=== PATIENT | female | born 1955 | race Caucasian/White ===

== ENCOUNTER 2017-08-04 23:12 | Inpatient (IN) | payer MEDICARE ==
[~2017-08-04 23:12] MED LIST: CELEXA20 MG PO; COREG12.5 MG PO; NS IV; PLAVIX75 MG PO; PRAVASTATIN SOD10 MG PO; SYNTHROID75 MCG PO; ULTRAM50 MG PO; UNASYN IV
[2017-08-05] VITALS (9 sets, daily range): BP systolic 141–182; BP diastolic 58–84; BMI 38.7; BMI 40.0
[2017-08-05] MEDS ORDERED: COREG25 MG PO (03:45)
[2017-08-05] MEDS ORDERED: SYNTHROID50 MCG PO (03:47)
[2017-08-05] MEDS ORDERED: NORVASC10 MG PO (03:48)
[2017-08-05] MEDS ORDERED: CATAPRES0.2 MG PO (03:49)
[2017-08-05] MEDS ORDERED: LEVEMIR100 U/M1 (03:50)
[2017-08-05] MEDS ORDERED: ZESTRIL40 MG PO (03:50)
[2017-08-05] MEDS ORDERED: HUMALOG 30100 UNITS/ SC (03:51)
[2017-08-05] MEDS ORDERED: BAYER CHEWABLE81 MG PO (04:01)
--- NOTE | 2017-08-05 04:27 | NUR ---
PT RECEIVED VIA EMS STRETCHER AWAKE, ALERT, ORIENTED, FAMILY ARRIVED PRIOR TO PTS ARRIVAL. PT IS ABLE TO ANSWER MOST HEALTH QUESTIONS, BUT UNSURE OF SOME MEDICATIONS. PT DENIES ANY NEEDS AT THIS TIME. WILL CONTINUE ADMISSION PROCESSA AND CONTINUE TO MONITOR PT CLOSELY. BED LOW, CALL LIGHT IN REACH, SIDE RAILS X 2, HOB 30 DEGREES.
--- NOTE | 2017-08-05 11:02 | NUR ---
AM ROUNDS - PT IN BED AND APPEARS TO BE SLEEPING AT THIS TIME WITH EQUAL AND NON LABORED BREATHING. PT ON ROOM AIR. IV TO RIGHT [place]. PAGE INTO RENAL FOR ORDERS. BED AT LOWEST POSITION. WILL CONTINUE TO MONITOR
[2017-08-05 13:55] LABS: BASOPHILS 0.6 % (0-2); EOSINOPHILS 3.8 % (0-7); HEMATOCRIT 37.7 % (36.0-48.0); IMMATURE GRANULOCYTES 0.8 % (0-5); LYMPHOCYTES 11.8 % (15-50); MCH 29.1 pg (26.0-34.0); MCHC 31.8 g/dL (31.0-37.0); MCV 91.5 fL (80.0-100.0); MEAN PLATELET VOLUME 9.8 fL (7.4-10.4); MONOCYTES 5.1 % (2-11); NEUTROPHILS 77.9 % (40-80); PLATELET COUNT 305 10x3/uL (130-400); RBC 4.12 10x6/uL (4.00-5.40); RDW 14.9 % (11.5-14.5)
[2017-08-05 14:07] LABS: ALBUMIN 3.2 g/dL (3.4-5.0); ANION GAP 22.4 mmol/L (8-16); BILIRUBIN - TOTAL 0.35 mg/dL (0.2-1.3); CALCIUM 8.5 mg/dL (8.5-10.1); CREATININE - SERUM 5.5 mg/dL (0.6-1.3); PHOSPHOROUS 6.9 mg/dL (2.5-4.9); POTASSIUM - SERUM 4.4 mmol/L (3.5-5.1); PROTEIN - SERUM 7.5 g/dL (6.4-8.2)
--- NOTE | 2017-08-05 15:57 | NUR ---
CONFIRMED DNR WITH PT. PT COULD EXPLAIN WHAT IT MEANT AND VERBALIZED SHE DOESNT WANT ANYTHING DONE AND WANTS TO BE A COMPLETED DNR. ORDER SIGNED AND IN CHART AND ORDER PLACED IN COMPUTER.
--- NOTE | 2017-08-05 16:25 | NUR ---
WALKED INTO PT'S ROOM LATER THIS MORNING AND PT WAS STARING OFF INTO SPACE AND WOULD NOT RESPOND WHEN SPEAKING TO HER. PT WOULD NOT FOLLOW COMMANDS. GORDON HUYNH NOTIFIED
--- NOTE | 2017-08-05 20:00 | NUR ---
RECEIVED PATIENT VIA BED, COMING FROM FLOOR WHERE SHE REPORTED HAVING LOC CHANGE AND HYPERGLYCEMIA. PATIENT IS A&O AT THIS TIME, BLOOD SUGAR CHECKED AND IS 118. NSR ON MONITOR, VSS. WILL CALL DR DECKER TO UPDATE ON PATIENT'S CONDITION.
--- NOTE | 2017-08-05 20:15 | NUR ---
DR DECKER PAGED FOR NEW ORDERS.
--- NOTE | 2017-08-05 20:52 | NUR ---
NEW ORDERS RECEIVED FROM DR DECKER.
[2017-08-06] VITALS (24 sets, daily range): BP systolic 119–181; BP diastolic 57–127
--- NOTE | 2017-08-06 | NUR ---
REASSESSMENT COMPLETE, NO ACUTE CHANGES. BLOOD SUGARS MORE STABLE AT THIS TIME, AND PATIENT IS A&O X4.
--- NOTE | 2017-08-06 02:48 | NUR ---
PATIENT VOIDED 200CC OF URINE, SAMPLE SENT TO LAB.
--- NOTE | 2017-08-06 02:48 | NUR ---
PATIENT INCONTINENT OF URINE ALSO, BED LINENS CHANGED, PATIENT CLEANED UP.
[2017-08-06 03:14] LABS: AMORPHOUS SEDIMENT <1+ /lpf (NONE SEEN); APPEARANCE HAZY (CLEAR); BACTERIA MODERATE /hpf (NONE SEEN); BILIRUBIN NEGATIVE (NEGATIVE); COLOR YELLOW (YELLOW); GLUCOSE 250 mg/dL (NEGATIVE); GRANULAR CAST RARE /lpf (NONE SEEN); HYALINE CAST OCC /lpf (NONE SEEN); KETONE NEGATIVE (NEGATIVE); MUCUS <1+ /lpf (NONE SEEN); NITRITE NEGATIVE (NEGATIVE); PH 6.5 (5.0-6.0); PROTEIN 3+ mg/dL (NEGATIVE); RED CELLS - URINE 0-5 /hpf (0-5); UROBILINOGEN NORMAL (NORMAL); WHITE CELLS - URINE 0-5 /hpf (0-5); YEAST >1+ /hpf (NONE SEEN)
--- NOTE | 2017-08-06 05:00 | NUR ---
PATIENT RESTING WELL, VSS.
[2017-08-06 06:07] LABS: BASOPHILS 0.5 % (0-2); EOSINOPHILS 4.1 % (0-7); HEMATOCRIT 34.7 % (36.0-48.0); HEMOGLOBIN 11.3 g/dL (12-16); IMMATURE GRANULOCYTES 0.2 % (0-5); LYMPHOCYTES 16.7 % (15-50); MCH 29.1 pg (26.0-34.0); MCHC 32.6 g/dL (31.0-37.0); MEAN PLATELET VOLUME 9.7 fL (7.4-10.4); MONOCYTES 5.6 % (2-11); NEUTROPHILS 72.9 % (40-80); PLATELET COUNT 281 10x3/uL (130-400); RBC 3.88 10x6/uL (4.00-5.40); WBC 8.9 10x3/uL (4.8-10.8)
[2017-08-06 06:19] LABS: MCV 89.4 fL (80.0-100.0)
[2017-08-06 06:30] LABS: ANION GAP 18.7 mmol/L (8-16); CALCIUM 8.4 mg/dL (8.5-10.1); CARBON DIOXIDE 21.6 mmol/L (21.0-32.0); CREATININE - SERUM 5.7 mg/dL (0.6-1.3); POTASSIUM - SERUM 4.3 mmol/L (3.5-5.1); THYROID STIMULATING HORMONE 1.78 uIU/mL (0.36-3.74)
--- NOTE | 2017-08-06 17:52 | NUR ---
1230 PT NOTED TO BE HAVING A SEZIURE BY FAMILY, THIS NURSE ENTERED ROOM PT CONVULSING AND TURNING PURPLE, 02 APPLIED PER NC O2 SATS IN 70S AND REBOUNED TO HIGH 90S WITH 2L. SEZURE LASTED ABOUT 2 MINUTES, PT WAS POSTYCTAL AND MD IN ROOM, NEW ORDER TO GIVE 1 AMP CA GLUCONATE X 1 AND KEPPRA 750MG X 1. UNABLE TO OBTAIN IV ACCESS. 1330 DR DODGE IN UNIT AND INSERTED A 20G PIV TO RIGHT EJ. PT ALSO RECEIEVING DIAYSIS AT THIS TIME AND KEPPRA GIVEN AFTER DIAYIS COMPLETE DUE TO BEING DIALYSIZED OUT. PT HAD 2 MORE SEZIURE EPIDOSED BETWEEN 1330 AND 1500 1500 ORDER RECEIVED TO GIVE ATIVAN 2MG IV X 1 1530 PT RESTING COMFORTABLY NO DISTRESS NOTED, FAMILY IN UNIT ALL QUESTIONS ANSWERED 1700 REMAINS STABLE NO OTHER SEZIURE ACTIVITY NOTED, RESTING QUIETLY
--- NOTE | 2017-08-06 19:10 | NUR ---
SHIFT ASSESSMENT COMPLETE, SEE FLOWSHEET FOR COMPLETE DETAILS. UPON ENTERING ROOM PATIENT WAS LOOKING AT THE CEILING AND WOULD NOT RESPOND TO ME. DAY SHIFT NURSE REPORTED THAT SHE HAD MULTIPLE SEIZURES TODAY BEFORE DIALYSIS AND WAS GIVEN KEPPRA AND ATIVAN FOR TREATMENT AND HAS BEEN "OUT OF IT ALL DAY" BLOOD SUGAR CHECK. WHILE GETTING BLOOD SUGAR PATIENT WOKE UP AND WAS LETHARGIC, BUT A&O AND ANSWERING MY QUESTIONS. SHE REMEMBERED MY NAME FROM LAST NIGHT AND TOLD ME SHE'S BEEN TIRED SINCE THE MEDS SHE RECEIVED TODAY. PATIENT STAYED AWAKE THROUGH ASSESSMENT, BUT WAS NOTICEABLY LETHARGIC. LUNGS SOUNDS CLEAR, S1S2, NSR ON MONITOR. BOWEL SOUNDS ACTIVE X4. PERIPHERAL PULSES +2. L AKA, R LEG IS RED AND SCALY WITH SCABS/SORES. VSS, WILL MONITOR.
--- NOTE | 2017-08-06 21:00 | NUR ---
PATIENT HAD RYTHEM CHANGE, RYTHEM LOOKED JUCTIONAL ON MONITOR AND WAS HAVING FREQUENT PAC'S AND SOME COMPENSATORY PAUSES. DID HAVE DIALYSIS TODAY. CMP ORDERED TO SEE ELECTROLYTES. PATIENT IS A DNR. SHE IS ALERT AND ORIENTED AND STATED TO ME AGAIN "I DO NOT WANT ANYTHING DONE, I AM TIRED". WILL MONITOR.
[2017-08-06 22:07] LABS: ALBUMIN 2.7 g/dL (3.4-5.0); ANION GAP 16.3 mmol/L (8-16); BILIRUBIN - TOTAL 0.4 mg/dL (0.2-1.3); CALCIUM 8.2 mg/dL (8.5-10.1); CARBON DIOXIDE 21.6 mmol/L (21.0-32.0); CREATININE - SERUM 5.4 mg/dL (0.6-1.3); POTASSIUM - SERUM 3.9 mmol/L (3.5-5.1); PROTEIN - SERUM 6.3 g/dL (6.4-8.2)
--- NOTE | 2017-08-06 22:15 | NUR ---
PATIENT REQUESTS BED CASTREJON, WHILE PLACING BED CASTREJON I NOTICED SHEETS WERE ALREADY WET. VOIDED 250 IN BEDPAN. LINEN CHANGE PERFORMED, TOLERATED WELL.
--- NOTE | 2017-08-06 23:00 | NUR ---
REASSESSMENT COMPLETE, NO ACUTE CHANGES. PATIENT LETHARGIC, BUT WILL RESPOND. CONFUSED TO TIME AND SITUATION. VSS. NSR ON MONITOR WITH OCCASIONALS PAC'S.
[2017-08-07] VITALS (18 sets, daily range): BP systolic 111–170; BP diastolic 49–89
--- NOTE | 2017-08-07 01:00 | NUR ---
RESTING WELL WITH EYES CLOSED. RR EVEN AND NON LABORED. VSS.
--- NOTE | 2017-08-07 03:05 | NUR ---
REASSESSMENT COMPLETE, SEE FLOWSHEET. NO ACUTE CHANGES. RHYTHM ISSUES MOSTLY RESOLVED AND PATIENT IN NSR WITH OCCASIONAL PAC. VSS. DENIES NEED.
[2017-08-07 04:09] LABS: BASOPHILS 0.5 % (0-2); EOSINOPHILS 4.1 % (0-7); HEMOGLOBIN 11.8 g/dL (12-16); IMMATURE GRANULOCYTES 0.3 % (0-5); MCH 29.9 pg (26.0-34.0); MCHC 33.7 g/dL (31.0-37.0); MCV 88.6 fL (80.0-100.0); MEAN PLATELET VOLUME 10.5 fL (7.4-10.4); MONOCYTES 7.4 % (2-11); NEUTROPHILS 70.7 % (40-80); PLATELET COUNT 276 10x3/uL (130-400); RBC 3.95 10x6/uL (4.00-5.40); RDW 14.8 % (11.5-14.5)
[2017-08-07 04:16] LABS: ANION GAP 19.5 mmol/L (8-16); CALCIUM 8.5 mg/dL (8.5-10.1); CARBON DIOXIDE 21.6 mmol/L (21.0-32.0); CREATININE - SERUM 5.6 mg/dL (0.6-1.3); POTASSIUM - SERUM 4.1 mmol/L (3.5-5.1)
--- NOTE | 2017-08-07 05:10 | NUR ---
LINENS WET WITH URINE, LINEN CHANGES PERFORMED AND PATIENT CLEANED. TOLERATED WELL.
--- NOTE | 2017-08-07 08:20 | NUR ---
SEIZURE ACTIVITY NOTED. HEAD AND EYES DEVIATED TO L BLOWING RESP. NEW ORDERS REC'D
--- NOTE | 2017-08-07 10:30 | NUR ---
PULLED L EJ OUT. DR. DECKER HERE AND NOTIFIED. INSTRUCTED TO HAVE SOMEONE PLACE ANOTHER LINE.
--- NOTE | 2017-08-07 10:45 | NUR ---
DR. DODGE NOTIFIED OF NEED FOR LINE PLACEMENT. GIVEN ORDER TO USE HEMISPLIT.
--- NOTE | 2017-08-07 11:30 | NUR ---
DIALYSIS NURSE NOTIFIED OF INSTRUCTION TO USE HEMISPLIT. ACTIVASE INDWELLING. 10CC ASPIRATED FROM BLUE PORT OF HEMISPLIT AND WASTED.
--- NOTE | 2017-08-07 12:00 | NUR ---
#16 FR NAPIER CATH PLACED USING ASEPTIC TECHNIQUE WITH RETURN YELLOW URINE WITH SEDIMENT.
--- NOTE | 2017-08-07 13:31 | NUR ---
Late Entry 1045 An order was written for case management consult for " transfer to hospital with an EEG machine that works" on 08/06/17 at 1229. I was not notified of this order. While rounding on MED II this AM the Renal HOOKER UP, WILDER Lyles advised CM of order. TO ICU and spoke with charge nurse, Chase. Spoke with nurse assigned today. CM requested community relations assistant to arrange for x/r on disc. TC to [facility]. Spoke with Olga, the nursing rose grading supervisor. NO ICU or Acute beds are available. TC TO [place], [place] at [phone]. Referred to the medical exchange at [phone]. DR Vizcarra is the hospitalist regional guide. Rec CB in ICU for DR Blanco. He spoke with DR Vizcarra. NO available ICU beds. TC to [place], [place]. Referred to [facility] at [phone]. Spoke with Norma. Provided DR Blanco's cell phone number for [facility] specialist regional guide. [facility] has had 5 call from other hospitals requesting neurology beds. There is one patient in the ER to be assigned to the 6th bed. CM advised Cass, nursing rose grading supervisor of transfer request and progress. ICU received CB from [facility]. No neurology ICU bed available. The patient has been accepted and placed on a waiting list. Preliminary paperwork forwarded and being completed. TC to [facility]. Referred to the medical exchange [phone]. DR Deanna Zee is on for neurology services however he is a neurosurgeon. MD to MD communication. No neurologist available on the weekend. Patient's X/R are on disc. Chart has been copied. [employer] form and PCS form have been prepared. CM advised charge nurse and primary nurse.
--- NOTE | 2017-08-07 16:30 | NUR ---
REC'D ROOM NUMBER FROM [facility] FOR TRANSFER.
--- NOTE | 2017-08-07 16:45 | NUR ---
REPORT CALLED TO [facility].
--- NOTE | 2017-08-07 16:50 | NUR ---
DAUGHTER INFORMED OF TRANSFER TO [facility].
--- NOTE | 2017-08-07 18:00 | NUR ---
DISCHARGED TO [facility] VIA AMBULANCE.
== END 2017-08-07 18:00 | disposition short-term general hospital (02) | DRG 100 ==
LOC: D.M2 23:12 → D.SDCHOLD 08-05 18:55 → D.M2 08-05 18:58 → D.ICU 08-05 20:11
PROVIDERS: Internal Medicine Nephrology; ADMIT Internal Medicine Nephrology
PROC: 5A1D70Z Performance of Urinary Filtration, Intermittent, Less than 6 Hours Per Day (ICD-10-PCS; principal; 2017-08-05)
DX: R56.9 Unspecified convulsions (principal); G93.40 Encephalopathy, unspecified; N18.6 End stage renal disease; I13.2 Hypertensive heart and chronic kidney disease with heart failure and with stage 5 chronic kidney disease, or end stage renal disease; W19.XXXA Unspecified fall, initial encounter; E11.22 Type 2 diabetes mellitus with diabetic chronic kidney disease; E11.65 Type 2 diabetes mellitus with hyperglycemia; I50.9 Heart failure, unspecified; Z99.2 Dependence on renal dialysis; I25.10 Atherosclerotic heart disease of native coronary artery without angina pectoris; I49.3 Ventricular premature depolarization; Z89.512 Acquired absence of left leg below knee; Z95.5 Presence of coronary angioplasty implant and graft; Z87.891 Personal history of nicotine dependence

== ENCOUNTER 2017-11-02 17:17 | Inpatient (IN) | payer MEDICARE ==
[~2017-11-02] VITALS: Ht 160 cm; Wt 83.8 kg
--- NOTE | ~2017-11-02 | OP ---
PATIENT NAME: DAMARIS KIRK MEDICAL RECORD: [id number] :53 LOCATION:D.M2 D.2113 ADMISSION DATE:11/02/17 SURGEON: ANDREZ GAY MD DATE OF OPERATION: 11/04/2017 PREOPERATIVE DIAGNOSES: 1. Renal failure. 2. Vulvar abscess. POSTOPERATIVE DIAGNOSES: 1. Renal failure. 2. Vulvar abscess. PROCEDURE: Incision and drainage of vulvar abscess. SURGEON: Andrez Gay MD ANESTHESIA: General. ANESTHESIOLOGIST: Dax Tony MD FINDINGS: A defect noted on the gluteal fold on the left of the vagina, tracks to the waistline. The entire length of defect measured to be 14 cm. A 5-cm opening post-procedure with 9 cm tracking from the superior aspect of the defect to the end of the tunneling. Depth is 6 cm. SPECIMEN REMOVED: None. SPECIMEN DISPOSITION: None applicable. ESTIMATED BLOOD LOSS: Minimal. FLUIDS: 500cc lactated Ringer. URINE OUTPUT: None. COMPLICATIONS: None. INDICATIONS: The patient is a 62-year-old female, who I consulted on med-surg. The patient was found to have an abscess that was drained in an Emergency Room in an outlying facility. The incision was less than 1-2 cm and actively draining purulent material. Findings were discussed with the patient, who consented for incision and drainage in the operating room. DESCRIPTION OF PROCEDURE: After informed consent was assured, the patient was taken to the operating room, anesthetic was obtained. The patient was now positioned and prepped and draped. Using a Mara clamp, the roof of the cavity was undermined and opened approximately 3-4 cm. This is from posterior to anteriorly. The wound was explored with a digit and purulent material cleared. Some necrotic fat was noted in the inferior aspect of the incision. This was removed with scalpel. Healthy viable tissue was identified. The wound was now packed with a roll of 2-inch Kerlix. Wet-to-dry dressings will be continued on the floor. Sponge, lap, and needle counts correct times 2. TRANSINT:[id number] Voice Confirmation ID: [id number] DOCUMENT ID: [id number] OPERATIVE REPORT [id number] DAMARIS KIRK ANDREZ GAY MD at 0815 CC: [id number] DICTATION DATE: 11/04/17 7134 DRUM DRIER: 11/05/17 0123 ADM IN [facility] 0 [facility], [facility]
[~2017-11-02 17:17] MED LIST changes: +BAYER CHEWABLE81 MG PO; +CATAPRES0.2 MG PO; +COREG25 MG PO; +HUMALOG 30100 UNITS/ SC; +LEVEMIR100 U/M1; +NORVASC10 MG PO; +SYNTHROID50 MCG PO; +ZESTRIL40 MG PO
[2017-11-02 17:30] VITALS: BP 129/45
[2017-11-02 17:37] VITALS: BMI 38.7
[2017-11-02] MEDS ORDERED: NOVOLOG100 U/M1 SC (18:05)
[2017-11-02] MEDS ORDERED: PLAVIX75 MG PO (18:06)
[2017-11-02] MEDS ORDERED: PRAVASTATIN SOD10 MG PO (18:18)
[2017-11-02] MEDS ORDERED: TUMS500 MG PO ×2 (18:19→21:14)
[2017-11-02] MEDS ORDERED: NITROQUICK0.4 MG SL (21:12)
[2017-11-02] MEDS ORDERED: IMODIUM2 MG PO (21:12)
[2017-11-02] MEDS ORDERED: PHENERGAN25 M1 PO (21:14)
[2017-11-02 21:33] LABS: BASOPHILS 0.1 % (0-2); EOSINOPHILS 1.1 % (0-7); HEMATOCRIT 22.1 % (36.0-48.0); IMMATURE GRANULOCYTES 0.8 % (0-5); LYMPHOCYTES 6.5 % (15-50); MCH 26.9 pg (26.0-34.0); MCHC 30.8 g/dL (31.0-37.0); MCV 87.4 fL (80.0-100.0); MEAN PLATELET VOLUME 8.3 fL (7.4-10.4); MONOCYTES 6.8 % (2-11); NEUTROPHILS 84.7 % (40-80); RBC 2.53 10x6/uL (4.00-5.40); RDW 16.5 % (11.5-14.5); WBC 10.2 10x3/uL (4.8-10.8)
[2017-11-02 21:48] LABS: ANION GAP 21.3 mmol/L (8-16); BILIRUBIN - TOTAL 0.74 mg/dL (0.2-1.3); CALCIUM 7.8 mg/dL (8.5-10.1); CARBON DIOXIDE 24.6 mmol/L (21.0-32.0); CREATININE - SERUM 7.6 mg/dL (0.6-1.3); POTASSIUM - SERUM 4.9 mmol/L (3.5-5.1); PROTEIN - SERUM 6.5 g/dL (6.4-8.2)
[2017-11-02 21:53] LABS: HEMOGLOBIN 6.8 g/dL (12-16); PLATELET COUNT 481 10x3/uL (130-400)
[2017-11-02 22:06] VITALS: BP 132/43
[2017-11-03 05:05] VITALS: BP 170/73
[2017-11-03 08:57] LABS: BASOPHILS 0.1 % (0-2); EOSINOPHILS 1.1 % (0-7); HEMATOCRIT 24.6 % (36.0-48.0); HEMOGLOBIN 7.7 g/dL (12-16); IMMATURE GRANULOCYTES 0.7 % (0-5); LYMPHOCYTES 6.6 % (15-50); MCH 26.7 pg (26.0-34.0); MCHC 31.3 g/dL (31.0-37.0); MEAN PLATELET VOLUME 8.4 fL (7.4-10.4); MONOCYTES 5.5 % (2-11); PLATELET COUNT 479 10x3/uL (130-400); RBC 2.88 10x6/uL (4.00-5.40); RDW 16.8 % (11.5-14.5); WBC 9.7 10x3/uL (4.8-10.8)
[2017-11-03 09:00] LABS: MCV 85.4 fL (80.0-100.0)
[2017-11-03 09:22] LABS: ANION GAP 23.3 mmol/L (8-16); CALCIUM 7.5 mg/dL (8.5-10.1); CARBON DIOXIDE 22.7 mmol/L (21.0-32.0); CREATININE - SERUM 8.1 mg/dL (0.6-1.3)
[2017-11-03 10:47] VITALS: Ht 160 cm; Wt 83.8 kg
[2017-11-03] MEDS ORDERED: COREG25 MG PO (11:12)
[2017-11-03] MEDS ORDERED: DIFLUCAN100 MG PO (11:19)
[2017-11-03] MEDS ORDERED: AUGMENTIN 875-11 TAB PO (11:21)
[2017-11-03] MEDS ORDERED: DILANTIN100 MG PO (11:22)
[2017-11-03] MEDS ORDERED: ACETAMINOPHEN500 M1 PO (11:23)
[2017-11-03] MEDS ORDERED: ZOFRAN4 MG PO (11:24)
[2017-11-03 20:00] VITALS: BP 177/74
[2017-11-04] VITALS: BP 182/77
[2017-11-04 04:00] VITALS: BP 182/79
[2017-11-04 05:33] LABS: BASOPHILS 0.1 % (0-2); EOSINOPHILS 1.6 % (0-7); HEMATOCRIT 26.3 % (36.0-48.0); HEMOGLOBIN 8.2 g/dL (12-16); IMMATURE GRANULOCYTES 0.6 % (0-5); LYMPHOCYTES 9.9 % (15-50); MCH 26.9 pg (26.0-34.0); MCHC 31.2 g/dL (31.0-37.0); MCV 86.2 fL (80.0-100.0); MEAN PLATELET VOLUME 8.3 fL (7.4-10.4); MONOCYTES 7.6 % (2-11); NEUTROPHILS 80.2 % (40-80); PLATELET COUNT 424 10x3/uL (130-400); RBC 3.05 10x6/uL (4.00-5.40); RDW 16.9 % (11.5-14.5); WBC 8.1 10x3/uL (4.8-10.8)
[2017-11-04 05:47] LABS: ALBUMIN 1.8 g/dL (3.4-5.0); BILIRUBIN - DIRECT 0.15 mg/dL (0.00-0.30); BILIRUBIN - INDIRECT 0.35 mg/dL (0.00-1.00); BILIRUBIN - TOTAL 0.5 mg/dL (0.2-1.3); CALCIUM 7.8 mg/dL (8.5-10.1); CARBON DIOXIDE 24.8 mmol/L (21.0-32.0); PHOSPHOROUS 5.7 mg/dL (2.5-4.9); PROTEIN - SERUM 6.4 g/dL (6.4-8.2)
[2017-11-04 05:48] LABS: ANION GAP 19.2 mmol/L (8-16); CREATININE - SERUM 5.1 mg/dL (0.6-1.3)
[2017-11-04 08:00] VITALS: BP 124/63
[2017-11-04 12:00] VITALS: BP 136/54
[2017-11-04 14:51] VITALS: BP 151/49
[2017-11-04 21:53] VITALS: BP 127/40
[2017-11-05 05:38] LABS: BASOPHILS 0.1 % (0-2); EOSINOPHILS 1.5 % (0-7); HEMATOCRIT 21.7 % (36.0-48.0); IMMATURE GRANULOCYTES 0.5 % (0-5); LYMPHOCYTES 10.1 % (15-50); MCH 26.4 pg (26.0-34.0); MCHC 30.4 g/dL (31.0-37.0); MCV 86.8 fL (80.0-100.0); MEAN PLATELET VOLUME 8.3 fL (7.4-10.4); MONOCYTES 8.3 % (2-11); NEUTROPHILS 79.5 % (40-80); PLATELET COUNT 383 10x3/uL (130-400); RDW 16.4 % (11.5-14.5); WBC 9.6 10x3/uL (4.8-10.8)
[2017-11-05 05:40] VITALS: BP 131/63
[2017-11-05 05:40] LABS: HEMOGLOBIN 6.6 g/dL (12-16)
[2017-11-05 05:44] LABS: CALCIUM 7.3 mg/dL (8.5-10.1); CARBON DIOXIDE 26.7 mmol/L (21.0-32.0); CREATININE - SERUM 4.2 mg/dL (0.6-1.3); POTASSIUM - SERUM 3.7 mmol/L (3.5-5.1)
[2017-11-05 05:46] LABS: PHOSPHOROUS 4.1 mg/dL (2.5-4.9)
[2017-11-05 08:57] VITALS: BP 137/65
[2017-11-05 15:56] VITALS: BP 119/67
[2017-11-05 18:47] LABS: BASOPHILS 0.2 % (0-2); EOSINOPHILS 1.5 % (0-7); IMMATURE GRANULOCYTES 1.2 % (0-5); LYMPHOCYTES 10.2 % (15-50); MCH 27.7 pg (26.0-34.0); MCHC 31.7 g/dL (31.0-37.0); MCV 87.4 fL (80.0-100.0); MEAN PLATELET VOLUME 8.3 fL (7.4-10.4); NEUTROPHILS 77.9 % (40-80); PLATELET COUNT 323 10x3/uL (130-400); RDW 16.2 % (11.5-14.5); WBC 9.4 10x3/uL (4.8-10.8)
[2017-11-05 18:59] LABS: HEMATOCRIT 28.4 % (36.0-48.0); RBC 3.25 10x6/uL (4.00-5.40)
[2017-11-05 20:26] VITALS: BP 113/46
[2017-11-06 05:03] LABS: BASOPHILS 0.1 % (0-2); EOSINOPHILS 1.7 % (0-7); HEMATOCRIT 27.8 % (36.0-48.0); HEMOGLOBIN 8.8 g/dL (12-16); IMMATURE GRANULOCYTES 1.5 % (0-5); LYMPHOCYTES 10.4 % (15-50); MCH 27.2 pg (26.0-34.0); MCHC 31.7 g/dL (31.0-37.0); MCV 85.8 fL (80.0-100.0); MEAN PLATELET VOLUME 8.3 fL (7.4-10.4); MONOCYTES 9.6 % (2-11); NEUTROPHILS 76.7 % (40-80); PLATELET COUNT 290 10x3/uL (130-400); RBC 3.24 10x6/uL (4.00-5.40); WBC 8.4 10x3/uL (4.8-10.8)
[2017-11-06 05:19] LABS: % SATURATION 24 % (15-55); IRON 24 ug/dl (35-150); TOTAL IRON BIND CAPACITY 99 ug/dl (260-445); UNSAT IRON BIND CAPACITY 75 ug/dl (150-375)
[2017-11-06 05:34] LABS: ANION GAP 18.1 mmol/L (8-16); CARBON DIOXIDE 23.6 mmol/L (21.0-32.0); POTASSIUM - SERUM 3.7 mmol/L (3.5-5.1)
[2017-11-06 05:45] LABS: CALCIUM 6.9 mg/dL (8.5-10.1)
[2017-11-06 06:23] VITALS: BP 137/50
[2017-11-06 07:00] VITALS: BP 150/69
[2017-11-06 20:00] VITALS: BP 153/56
[2017-11-07 06:01] LABS: BASOPHILS 0.3 % (0-2); EOSINOPHILS 3.3 % (0-7); HEMATOCRIT 27.5 % (36.0-48.0); HEMOGLOBIN 8.7 g/dL (12-16); LYMPHOCYTES 8.7 % (15-50); MCH 27.2 pg (26.0-34.0); MCHC 31.6 g/dL (31.0-37.0); MCV 85.9 fL (80.0-100.0); MEAN PLATELET VOLUME 8.7 fL (7.4-10.4); MONOCYTES 8.4 % (2-11); NEUTROPHILS 75.3 % (40-80); RDW 16.1 % (11.5-14.5); WBC 9.5 10x3/uL (4.8-10.8)
[2017-11-07 06:02] LABS: PLATELET COUNT 361 10x3/uL (130-400)
[2017-11-07 06:12] LABS: ANION GAP 19.5 mmol/L (8-16); CARBON DIOXIDE 22.1 mmol/L (21.0-32.0); CREATININE - SERUM 7.5 mg/dL (0.6-1.3); PHOSPHOROUS 6.1 mg/dL (2.5-4.9); POTASSIUM - SERUM 3.6 mmol/L (3.5-5.1); VANCOMYCIN - RANDOM 18.6 ug/mL (10.0-20.0)
[2017-11-07 06:16] LABS: CALCIUM 6.7 mg/dL (8.5-10.1)
[2017-11-07 08:57] VITALS: BP 158/54
[2017-11-07 12:14] VITALS: BP 172/53
[2017-11-07 21:07] VITALS: BP 171/54
[2017-11-08 06:27] VITALS: BP 163/55
[2017-11-08 07:17] LABS: BASOPHILS 0.3 % (0-2); EOSINOPHILS 5.1 % (0-7); HEMATOCRIT 28.8 % (36.0-48.0); HEMOGLOBIN 9.2 g/dL (12-16); LYMPHOCYTES 9.9 % (15-50); MCH 27.4 pg (26.0-34.0); MCHC 31.9 g/dL (31.0-37.0); MCV 85.7 fL (80.0-100.0); MEAN PLATELET VOLUME 8.7 fL (7.4-10.4); MONOCYTES 11.2 % (2-11); NEUTROPHILS 67.5 % (40-80); PLATELET COUNT 426 10x3/uL (130-400); RBC 3.36 10x6/uL (4.00-5.40); RDW 15.8 % (11.5-14.5); WBC 9.5 10x3/uL (4.8-10.8)
[2017-11-08 07:36] LABS: CALCIUM 8.2 mg/dL (8.5-10.1); CARBON DIOXIDE 26.7 mmol/L (21.0-32.0); POTASSIUM - SERUM 3.7 mmol/L (3.5-5.1); VANCOMYCIN - RANDOM 18.3 ug/mL (10.0-20.0)
[2017-11-08 07:39] LABS: CREATININE - SERUM 5.3 mg/dL (0.6-1.3); PHOSPHOROUS 4.2 mg/dL (2.5-4.9)
[2017-11-08 08:21] VITALS: BP 182/57
[2017-11-08 12:20] VITALS: BP 169/55
[2017-11-08 15:14] VITALS: BP 177/60
[2017-11-08 20:00] VITALS: BP 145/96
[2017-11-09] VITALS: BP 144/90
[2017-11-09 04:00] VITALS: BP 140/80
[2017-11-09 07:41] VITALS: BP 156/52
[2017-11-09] MEDS ORDERED: COREG25 MG PO (08:52)
== END 2017-11-09 21:30 | DRG 853 ==
LOC: D.M2 17:17
PROVIDERS: Internal Medicine Nephrology; Obstetrics & Gynecology
PROC: 0U9MXZZ Drainage of Vulva, External Approach (ICD-10-PCS; principal; 2017-11-04 15:00)
DX: A41.9 Sepsis, unspecified organism (principal); N18.6 End stage renal disease; N76.4 Abscess of vulva; I13.2 Hypertensive heart and chronic kidney disease with heart failure and with stage 5 chronic kidney disease, or end stage renal disease; J11.1 Influenza due to unidentified influenza virus with other respiratory manifestations; E11.22 Type 2 diabetes mellitus with diabetic chronic kidney disease; I50.9 Heart failure, unspecified; E11.40 Type 2 diabetes mellitus with diabetic neuropathy, unspecified; E11.51 Type 2 diabetes mellitus with diabetic peripheral angiopathy without gangrene; I25.10 Atherosclerotic heart disease of native coronary artery without angina pectoris; D63.1 Anemia in chronic kidney disease; E83.39 Other disorders of phosphorus metabolism; Z95.5 Presence of coronary angioplasty implant and graft